=== PATIENT | male | born 1950 | race Caucasian/White ===

== ENCOUNTER 2019-09-07 09:00 | Emergency (ER) | payer OTHER ==
[2019-09-07] MEDS ORDERED: NA CHLORIDE 0.9% 1,000 ML ONE (10:33)
--- NOTE | 2019-09-07 10:58 | RAD REPORT ---
EXAM DESCRIPTION: USExtrem Venous W Compress Bil09/07/2019 10:49 am CLINICAL HISTORY: Bilateral leg swelling COMPARISON: none FINDINGS: The common femoral, superficial femoral, popliteal and posterior tibial veins bilaterally are compressible and demonstrate augmentation. Doppler demonstrates good flow. IMPRESSION: No evidence of deep venous thrombosis involving either lower extremity.
--- NOTE | 2019-09-07 11:18 | RAD REPORT ---
EXAM DESCRIPTION: CT - Chest For Pe Angio - 09/07/2019 10:53 am CLINICAL HISTORY: Chest pain COMPARISON: 2014 TECHNIQUE: Dynamically enhanced axial 3 mm thick images of the chest were obtained during administra tion of <100> mL Isovue 370 IV contrast. Coronal and oblique reconstruction images were generated and reviewed. Exam utilizes a protocol for optimal evaluation of pulmonary arterial tree. Maximum intensity projections 3D imaging was utilized All CT scans are performed using dose optimization technique as appropriate and may include automated exposure control or mA/KV adjustment according to patient size. FINDINGS: A pulmonary embolus is not seen. A thoracic aortic aneurysm is not noted. A pleural effusion is not seen. A pericardial effusion is not seen. 3 x 1 centimeter right upper lobe opacity. 1 centimeter noncalcified left lower lobe nodule Calcified lung granulomas. Mild to moderate paraseptal/centrilobular emphysema IMPRESSION: Negative for a pulmonary embolism. Development of a 1 centimeter left lower lobe nodule. Development of a 3 x 1 centimeter right upper lobe opacity. This probably represents a scar. A mass i s less likely. It is recommended that patient have a PET CT scan for further evaluation
--- NOTE | 2019-09-07 11:31 | EDPHYS ---
Physician Documentation [facility] Name: Rigoberto Murray Age: 69 yrs Sex: Male : 1950 Arrival Date: 09/07/2019 Time: 09:03 Bed 4 Private MD: Yovani Mcduffie V ED Physician Santosh Lopes HPI: 09/07 10:18 This 69 yrs old Male presents to ER via Ambulatory with complaints of Blood angel clot. 10:18 This 69 yrs old Male presents to ER via Ambulatory with complaints of Blood angel clot. 10:18 The patient has shortness of breath with light activity. Onset: The symptoms/episode angel began/occurred 2 week(s) ago. Duration: The symptoms are intermittent, with no pattern. The patient's shortness of breath has no apparent modifying factors. Associated signs and symptoms: The patient has no apparent associated signs or symptoms. Severity of symptoms: At their worst the symptoms were mild moderate in the emergency department the symptoms have improved mildly. The patient has not experienced similar symptoms in the past. Historical: - Allergies: 09:19 No Known Allergies; ss - Home Meds: 10:03 Diltiazem Oral [Active]; levothyroxine oral [Active]; pravastatin oral oral [Active]; ah Magnesium Oxide Oral [Active]; Vitamin B-12 Oral [Active]; Vitamin D3 oral oral [Active]; Symbicort inhalation inhalation [Active]; - PMHx: 09:19 Hypertension; High Cholesterol; Hypothyroidism; ss 09:20 COPD; bladder CA; ss - PSHx: 09:20 Gastric Bypass; Appendectomy; ss - Immunization history:: Adult Immunizations up to date. - Coronavirus screen:: The patient has NOT traveled to [place], [place], or [place] in the past 14 days. Proceed with normal triage process as indicated. - Social history:: Smoking status: Patient reports the use of cigarette tobacco products, smokes one pack cigarettes per day. - Family history:: not pertinent. - Ebola Screening: : Patient denies exposure to infectious person Patient denies travel to an Ebola-affected area in the 21 days before illness onset. ROS: 10:18 Constitutional: Negative for fever, chills, and weight loss, Eyes: Negative for injury, angel pain, redness, and discharge, ENT: Negative for injury, pain, and discharge, Neck: Negative for injury, pain, and swelling, Cardiovascular: Negative for chest pain, palpitations, and edema, Abdomen/GI: Negative for abdominal pain, nausea, vomiting, diarrhea, and constipation, Back: Negative for injury and pain, : Negative for injury, bleeding, discharge, and swelling, MS/Extremity: Negative for injury and deformity, Skin: Negative for injury, rash, and discoloration, Neuro: Negative for headache, weakness, numbness, tingling, and seizure, Psych: Negative for depression, anxiety, suicide ideation, homicidal ideation, and hallucinations, Allergy/Immunology: Negative for hives, rash, and allergies, Endocrine: Negative for neck swelling, polydipsia, polyuria, polyphagia, and marked weight changes, Hematologic/Lymphatic: Negative for swollen nodes, abnormal bleeding, and unusual bruising. 10:18 Respiratory: Positive for cough, shortness of breath. Exam: 10:18 Constitutional: This is a well developed, well nourished patient who is awake, alert, angel and in no acute distress. Head/Face: Normocephalic, atraumatic. Eyes: Pupils equal round and reactive to light, extra-ocular motions intact. Lids and lashes normal. Conjunctiva and sclera are non-icteric and not injected. Cornea within normal limits. Periorbital areas with no swelling, redness, or edema. ENT: Nares patent. No nasal discharge, no septal abnormalities noted. Tympanic membranes are normal and external auditory canals are clear. Oropharynx with no redness, swelling, or masses, exudates, or evidence of obstruction, uvula midline. Mucous membranes moist. Neck: Trachea midline, no thyromegaly or masses palpated, and no cervical lymphadenopathy. Supple, full range of motion without nuchal rigidity, or vertebral point tenderness. No Meningismus. Chest/axilla: Normal chest wall appearance and motion. Nontender with no deformity. No lesions are appreciated. Cardiovascular: Regular rate and rhythm with a normal S1 and S2. No gallops, murmurs, or rubs. Normal PMI, no JVD. No pulse deficits. Respiratory: Lungs have equal breath sounds bilaterally, clear to auscultation and percussion. No rales, rhonchi or wheezes noted. No increased work of breathing, no retractions or nasal flaring. Abdomen/GI: Soft, non-tender, with normal bowel sounds. No distension or tympany. No guarding or rebound. No evidence of tenderness throughout. Back: No spinal tenderness. No costovertebral tenderness. Full range of motion. Male : Normal genitalia with no discharge or lesions. Skin: Warm, dry with normal turgor. Normal color with no rashes, no lesions, and no evidence of cellulitis. MS/ Extremity: Pulses equal, no cyanosis. Neurovascular intact. Full, normal range of motion. Neuro: Awake and alert, GCS 15, oriented to person, place, time, and situation. Cranial nerves II-XII grossly intact. Motor strength 5/5 in all extremities. Sensory grossly intact. Cerebellar exam normal. Normal gait. Psych: Awake, alert, with orientation to person, place and time. Behavior, mood, and affect are within normal limits. 10:18 Musculoskeletal/extremity: DVT Exam: No signs of deep vein thrombosis. no pain, no swelling, no tenderness, negative Homans' sign noted on exam, no appreciated bluish discoloration, no erythema, no increased warmth. Vital Signs: 09:19 BP 123 / 84; Pulse 99; Resp 16; Temp 97.1(TE); Pulse Ox 99% on R/A; Weight 93.44 kg; ss Height 6 ft. 0 in. (182.88 cm); Pain 0/10; 09:55 BP 122 / 79; Pulse 75; Resp 12; Pulse Ox 99% ; sv 11:07 BP 131 / 82; Pulse 67; Resp 12; Pulse Ox 100% ; sv 11:44 BP 126 / 82; Pulse 66; Resp 16; Pulse Ox 99% ; sv 09:19 Body Mass Index 27.94 (93.44 kg, 182.88 cm) MDM: 09:35 Patient medically screened. [facility] 10:19 Data reviewed: vital signs, nurses notes, lab test result(s), EKG, radiologic studies, [facility] CT scan, doppler, plain films. 09/07 09:53 Order name: BNP [facility] 09/07 10:46 Order name: NT PRO-BNP; Complete Time: 11:21 EDPR 09/07 09:53 Order name: CT Chest For PE Angio [facility] 09/07 09:53 Order name: US Extremity Venous W Compression Antonio [facility] 09/07 11:09 Order name: US; Complete Time: 11:21 EDMS 02/11 11:24 Order name: CT [facility] 09/07 09:53 Order name: EKG - Nurse/Tech; Complete Time: 11:43 angel 09/07 09:53 Order name: EKG; Complete Time: 09:53 [facility] Administered Medications: 11:00 Drug: NS 0.9% 1000 ml Route: IV; Rate: 1 bolus; Site: right antecubital; sv 11:43 Follow up: Response: No adverse reaction; IV Status: Order to discontinue infusion; IV sv Intake: 800ml Disposition: 09/07/19 11:31 Discharged to Home. Impression: Chronic obstructive pulmonary disease, unspecified, Solitary pulmonary nodule, Tobacco abuse counseling, Tobacco use. - Condition is Stable. - Discharge Instructions: Chronic Bronchitis, Steps to Quit Smoking, Smoking Hazards, Chronic Obstructive Pulmonary Disease Exacerbation, Steps to Quit Smoking, [id number], Cough, Adult, [id number], Pulmonary Nodule, Pulmonary Nodule, [id number], Chronic Obstructive Pulmonary Disease Exacerbation, [id number]. - Prescriptions for Zithromax Z- Mitchel 250 mg Oral Tablet - take 1 tablet by ORAL route as directed for 5 days Day 1 - take two (2) tablets one time. Day 2, 3, 4 , 5 take one (1) tablet once daily.; 6 tablet. Medrol (Mitchel) 4 mg Oral Tablets, Dose Pack - take 1 tablet by ORAL route as directed - follow package instructions; 1 packet. - Medication Reconciliation Form, Thank You Letter, Antibiotic Education, Prescription Opioid Use form. - Follow up: Yovani Mcduffie MD; When: 2 - 3 days; Reason: Recheck today's complaints, Continuance of care, Re-evaluation by your physician. - Problem is new. - Symptoms have improved. Signatures: Dispatcher [employer] [facility] Monica Granados RN RN Santosh Wilks MD MD cha Smirch, Shelby, RN RN Mechelle Weeks RN RN Corrections: (The following items were deleted from the chart) 11:44 11:31 09/07/2019 11:31 Discharged to Home. Impression: Chronic obstructive pulmonary sv disease, unspecified; Solitary pulmonary nodule; Tobacco abuse counseling; Tobacco use. Condition is Stable. Forms are Medication Reconciliation Form, Thank You Letter, Antibiotic Education, Prescription Opioid Use. Follow up: Yovani Mcduffie; When: 2 - 3 days; Reason: Recheck today's complaints, Continuance of care, Re-evaluation by your physician. Problem is new. Symptoms have improved. angel
--- NOTE | 2019-09-07 11:31 | ER ---
Nurse's Notes [facility] Name: Rigoberto Murray Age: 69 yrs Sex: Male : 1950 Arrival Date: 09/07/2019 Time: 09:03 Bed 4 Private MD: Yovani Mcduffie V Diagnosis: Chronic obstructive pulmonary disease, unspecified;Solitary pulmonary nodule;Tobacco abuse counseling;Tobacco use Presentation: 09/07 09:16 Presenting complaint: Patient states: Intermittent shortness of breath x "a couple ss weeks". Sent by PCP to r/o PE. Transition of care: patient was not received from another setting of care. Onset of symptoms is unknown. Risk Assessment: Do you want to hurt yourself or someone else? Patient reports no desire to harm self or others. Initial Sepsis Screen: Does the patient meet any 2 criteria? HR > 90 bpm. Does the patient have a suspected source of infection? No. Patient's initial sepsis screen is negative. Care prior to arrival: None. 09:16 Method Of Arrival: Ambulatory ss 09:16 Acuity: SYLVIA 3 ss Historical: - Allergies: 09:19 No Known Allergies; ss - Home Meds: 10:03 Diltiazem Oral [Active]; levothyroxine oral [Active]; pravastatin oral oral [Active]; ah Magnesium Oxide Oral [Active]; Vitamin B-12 Oral [Active]; Vitamin D3 oral oral [Active]; Symbicort inhalation inhalation [Active]; - PMHx: 09:19 Hypertension; High Cholesterol; Hypothyroidism; ss 09:20 COPD; bladder CA; ss - PSHx: 09:20 Gastric Bypass; Appendectomy; ss - Immunization history:: Adult Immunizations up to date. - Coronavirus screen:: The patient has NOT traveled to [place], [place], or [place] in the past 14 days. Proceed with normal triage process as indicated. - Social history:: Smoking status: Patient reports the use of cigarette tobacco products, smokes one pack cigarettes per day. - Family history:: not pertinent. - Ebola Screening: : Patient denies exposure to infectious person Patient denies travel to an Ebola-affected area in the 21 days before illness onset. Screenin:18 Abuse screen: Denies threats or abuse. Denies injuries from another. Nutritional sv screening: No deficits noted. Tuberculosis screening: No symptoms or risk factors identified. Fall Risk None identified. Assessment: 09:52 General: Appears in no apparent distress. Behavior is calm, cooperative. Pain: Denies ah pain. Neuro: Level of Consciousness is awake, alert, obeys commands, Oriented to person, place, time, Coach Builder are equal bilaterally. Cardiovascular: Denies chest pain, Heart tones S1 S2 present Capillary refill < 3 seconds. Respiratory: Reports shortness of breath on exertion since off and on a couple of weeks Airway is patent Respiratory effort is even, unlabored, Respiratory pattern is regular, symmetrical, Breath sounds are clear. GI: No signs and/or symptoms were reported involving the gastrointestinal system. Abdomen is non-distended, Bowel sounds present X 4 quads. Abd is soft and non tender X 4 quads. : No signs and/or symptoms were reported regarding the genitourinary system. EENT:. Derm: No deficits noted. Skin is intact, is healthy with good turgor, Skin is dry. 11:44 Reassessment: Patient appears in no apparent distress at this time. No changes from previously documented assessment. Patient and/or family updated on plan of care and expected duration. Pain level reassessed. Patient is alert, oriented x 3, equal unlabored respirations, skin warm/dry/pink. Vital Signs: 09:19 BP 123 / 84; Pulse 99; Resp 16; Temp 97.1(TE); Pulse Ox 99% on R/A; Weight 93.44 kg; Height 6 ft. 0 in. (182.88 cm); Pain 0/10; 09:55 BP 122 / 79; Pulse 75; Resp 12; Pulse Ox 99% ; sv 11:07 BP 131 / 82; Pulse 67; Resp 12; Pulse Ox 100% ; sv 11:44 BP 126 / 82; Pulse 66; Resp 16; Pulse Ox 99% ; sv 09:19 Body Mass Index 27.94 (93.44 kg, 182.88 cm) ED Course: 09:03 Patient arrived in ED. mr 09:03 Yovani Mcduffie MD is Private Physician. mr 09:17 Triage completed. ss 09:19 Arm band placed on right wrist. ss 09:35 Santosh Lopes MD is Attending Physician. [facility] 09:52 Mechelle Weeks, RN is Primary Nurse. 09:54 Patient has correct armband on for positive identification. Placed in gown. Bed in low sv position. Call light in reach. Adult w/ patient. professional development director on. Pulse ox on. NIBP on. Door closed. Head of bed elevated. 10:03 Lab(s) recollected, by me, sent to lab. Inserted saline lock: 20 gauge in right mh5 antecubital area, using aseptic technique. Blood collected. 10:[address] via stretcher. 10:17 BNP Sent. sv 11:30 Yovani Mcduffie MD is Referral Physician. angel 11:43 US Extremity Venous W Compression Antonio Sent. sv 11:43 CT Chest For PE Angio Sent. sv 11:43 No provider procedures requiring assistance completed. IV discontinued, intact, sv bleeding controlled, No redness/swelling at site. Pressure dressing applied. Administered Medications: 11:00 Drug: NS 0.9% 1000 ml Route: IV; Rate: 1 bolus; Site: right antecubital; sv 11:43 Follow up: Response: No adverse reaction; IV Status: Order to discontinue infusion; IV sv Intake: 800ml Intake: 11:43 IV: 800ml; Total: 800ml. sv Outcome: 11:31 Discharge ordered by . angel 11:43 Discharged to home ambulatory, with family. sv 11:43 Condition: stable 11:43 Discharge instructions given to patient, family, Instructed on discharge instructions, follow up and referral plans. medication usage, Demonstrated understanding of instructions, follow-up care, medications, Prescriptions given X 2. 11:44 Patient left the ED. sv Signatures: Monica Granados RN RN sv Anderson, Corey, MD MD cha Rivera, Mary mr Smirch, Shelby, RN RN ss Martinez, Maria [facility] Mechelle Weeks, JENN BARAJAS
--- NOTE | 2019-09-07 12:28 | EKG ---
Test Date: 2019-09-07 Test Time: 10:03:40 Peanut Blancher: TRISTA MEASUREMENT RESULTS: Intervals: Rate: 72 IN: 168 QRSD: 74 QT: 374 QTc: 409 [place]: P: 39 IN: 168 QRS: 63 T: 69 INTERPRETIVE STATEMENTS: Normal sinus rhythm Normal ECG Compared to ECG 02/23/2007 14:50:12 No significant changes Electronically Signed On 09-07-19 12:27:10 EVENTS ADMINISTRATIVE ASSISTANT by Lonnie Weeks
[2019-09-09 04:58] VITALS: TEMP 97.1
[2019-09-09 05:02] VITALS: BP 126/82; O2SAT 99
== END 2019-09-07 11:44 | disposition home or self-care (01) ==
LOC: ER 09:00
DX: J44.9 Chronic obstructive pulmonary disease, unspecified (principal); R91.1 Solitary pulmonary nodule; Z72.0 Tobacco use; Z71.6 Tobacco abuse counseling; I10 Essential (primary) hypertension; E78.5 Hyperlipidemia, unspecified; E03.9 Hypothyroidism, unspecified; Z85.51 Personal history of malignant neoplasm of bladder
CPT/HCPCS: 93005; 36415; 83880; 71275; 93970; 96360; 99285; Q9967; J7030

== ENCOUNTER 2021-11-13 09:20 | Day surgery (SDC) | payer OTHER ==
[2021-11-08 14:12] LABS: Hematocrit 46.7 % (39.6-49.0); Lymphocytes % 11.9 % (15.3-44.8); MPV 7.3 fL (7.6-11.3); RBC Red Blood Cell Count 5.07 M/uL (4.33-5.43)
[2021-11-08 14:16] LABS: Protime INR 0.98
[2021-11-08 14:20] LABS: Urine Appearance CLEAR (Clear); Urine Bilirubin NEGATIVE (Negative); Urine Blood 2+ (Negative); Urine Color YELLOW (Yellow); Urine Glucose NEGATIVE (Negative); Urine Protein NEGATIVE (Negative); Urine Urobilinogen 0.2 mg/dL (0.2-1.0)
[2021-11-08 14:28] LABS: Urine Microscopic Reflex ORDER UMIC
[2021-11-08 14:32] LABS: Potassium 4.3 mmol/L (3.5-5.1)
[2021-11-08 14:47] LABS: Urine Bacteria <20 /HPF (NONE SEEN); Urine Urothelial Cells <5 /HPF (NONE SEEN)
[2021-11-13] MEDS ORDERED: GEMCITABINE HCL 26.3 ML IVPB ONE (09:45)
[2021-11-13] MEDS ORDERED: Ringers Lactate 1,000 ML IV ONE (09:55)
[2021-11-13] MEDS ORDERED: CEFAZOLIN/SWI 2gm 2 GM/20 ML SYR ONE (09:55)
[2021-11-13] MEDS ORDERED: propofoL 200 MG/20 ML VIAL IV ONE ×2 (12:34→13:39)
[2021-11-13] MEDS ORDERED: ROCURONIUM 50 MG/5 ML VIAL IV ONE (12:35)
[2021-11-13] MEDS ORDERED: LIDOCAINE 1% MPF 5 ML VIAL ONE ×2 (12:35→13:39)
[2021-11-13] MEDS ORDERED: FENTANYL CITR 100 MCG/2 ML ONE (12:35)
[2021-11-13] MEDS ORDERED: GLYCOPYRROLATE 0.2 MG/ML SYR ONE ×2 (13:39)
[2021-11-13] MEDS ORDERED: dexAMETHasone 10 MG/ML VIAL ONE (13:45)
[2021-11-13] MEDS ORDERED: KETOROLAC 30 MG/ML INJ ONE (13:45)
[2021-11-13] MEDS ORDERED: NEOSTIGMINE 1 MG/ML -5 ML ONE (13:45)
[2021-11-13] MEDS ORDERED: ONDANSETRON 4 MG/2 ML VIAL ONE (13:48)
[2021-11-13] MEDS ORDERED: CODEINE 30MG/APAP 300MG TAB PO PRN (14:31)
[2021-11-13] MEDS ORDERED: PHENAZOPYRIDINE 100MG TAB PO ONE ×2 (14:31→15:50)
[2021-11-13] MEDS ORDERED: CODEINE 30MG/APAP 300MG TAB ONE (15:50)
[2021-11-13 16:13] VITALS: BP 111/69; TEMP 97; O2SAT 98
--- NOTE | 2021-11-14 01:08 | OP ---
Surgeon: ARNIE HELLER Preoperative Diagnoses: 1.Bladder tumor. 2.History of urothelial carcinoma of the bladder from 2015. Postoperative Diagnosis: 1.Bladder tumor. 2.History of urothelial carcinoma of the bladder from 2015. Principal Procedures: 1.Cystoscopy with transurethral resection of a bladder tumor. 2.Instillation of gemcitabine intravesical 2 g and 50 cc normal saline. Findings: 1.5 cm right lateral wall posterior bladder tumor. Indication For Procedure: Mr. Murray is a 71-year-old gentleman who has a history of urothelial car cinoma of the bladder, diagnosed in [address] Samayoa. He underwent resection, but it is unclear if he had any adjuvant therapy. He then presented for evaluation and underwent cystoscopy which reve aled the presence of a recurrent tumor in the right lateral wall posteriorly. As a result, he presen ts today for definitive surgical resection and management. Procedure In Detail: The patient was consented in the preoperative holding area before being transfe rred to operative suite, where general anesthesia was induced. He was given 2 g of Ancef IV antimicr obial prophylaxis and pneumo boots were provided for DVT prophylaxis. He was placed in the lithotomy position, padded and secured to the table appropriately. His genitalia were prepped using Hibiclens and draped in standard fashion. The case was begun using urethral sounds to dilate the meatus and f boston navicularis to 30-Spanish. I then utilized a 26-Spanish resectoscope sheath and visual obturator to traverse the urethra and into the bladder with ease. The bladder was surveyed in its entirety and was somewhat capacious and somewhat floppy in appearance with moderate trabeculation throughout. Th e trigone and ureteral orifices were orthotopic in location. The tumor was noted to emanate from the right lateral wall posteriorly near the ureteral orifice. As a result, utilizing the thin loop and bipolar resection, with normal saline, the tumor was resected from its position within the right late ral wall, including sufficient tissue for muscular analysis. These chips were sent for pathologic an alysis. Ellik evacuation was performed to remove other chips and any residual were directly grasped from within the bladder and sent for analysis. A careful search for bleeding was then undertaken, wi th the bladder decompressed, and the base was carefully fulgurated. With no ongoing bleeding with th e bladder decompressed, I then surveyed the remainder of the bladder and the urethra on the way out. With no additional chips or bleeding noted, I then placed an 18-Spanish Vaca catheter into his bladd er with ease and decompressed the fluid and urine. 30 cc of sterile water was placed in the balloon. I then retrograde instilled 2 g of gemcitabine and 50 cc of normal saline and clamped the catheter with the fluid in place. This was connected to a leg bag and his genitalia was towelled off using gr een and blue towels. The patient was then taken out of the lithotomy position, awakened from general anesthesia, transferred to a stretcher, and then transferred to the recovery room in good condition. Complications: None. Discharge Disposition: He should follow up in the Urology Clinic in about 2 to 3 weeks to discuss th e results of pathology indicating next steps. He will be discharged home without the Vaca catheter as the tumor was solitary and isolated in position and there was no concern for perforation. KAILA/MODL Voice ID: [id number] Report ID: [id number]
== END 2021-11-13 16:00 | disposition home or self-care (01) ==
LOC: OR 09:20
PROVIDERS: ATTEND Urology
PROC: 3E0K705 Introduction of Other Antineoplastic into Genitourinary Tract, Via Natural or Artificial Opening (ICD-10-PCS; 2021-11-13)
PROC: 0TBB8ZX Excision of Bladder, Via Natural or Artificial Opening Endoscopic, Diagnostic (ICD-10-PCS; principal; 2021-11-13 10:45)
DX: C67.4 Malignant neoplasm of posterior wall of bladder (principal); I10 Essential (primary) hypertension; J44.9 Chronic obstructive pulmonary disease, unspecified; E03.9 Hypothyroidism, unspecified; E78.00 Pure hypercholesterolemia, unspecified; Z20.822 Contact with and (suspected) exposure to COVID-19
CPT/HCPCS: 87088; 85025; 87086; 80048; 36415; 85610; 88307; 52235; 51720; U0003; J2704 ×2; J3010; J1100; J2710; J0690; J9201; J7120; J2405; 81003; 81015; 88305

== ENCOUNTER 2022-08-06 09:25 | Day surgery (SDC) | payer OTHER ==
[2022-07-30 13:01] LABS: Hematocrit 47.8 % (39.6-49.0); Lymphocytes % 15.5 % (15.3-44.8); MCV 94.9 fL (80-100); MPV 7.5 fL (7.6-11.3); RBC Red Blood Cell Count 5.04 M/uL (4.33-5.43)
[2022-07-30 13:12] LABS: Potassium 4.5 mmol/L (3.5-5.1)
--- NOTE | 2022-07-30 13:12 | RAD REPORT ---
EXAM DESCRIPTION: RAD - Chest Pa And Lat (2 Views) - 07/30/2022 12:56 pm CLINICAL HISTORY: Pre op pending urolift and bladder biospy COMPARISON: Chest Pa And Lat (2 Views) dated 10/30/2021; Chest Pa And Lat (2 Views) dated 09/07/2019; C HEST PA AND LAT 2 VIEW dated 07/20/2014 FINDINGS: Lines: None. Lungs: No evidence of edema or pneumonia. Pleural: No significant pleural effusions or pneumothorax. Cardiac: The heart size is within normal limits. Mediastinum: Within normal limits. Bones: No acute fractures. Other: None IMPRESSION: No acute cardiopulmonary disease.
[2022-08-06] MEDS ORDERED: Ringers Lactate 1,000 ML IV ONE (09:48)
[2022-08-06] MEDS ORDERED: CEFAZOLIN SODIUM 2 GM/VIAL ONE (09:48)
[2022-08-06] MEDS ORDERED: LIDOCAINE 1% MPF 5 ML VIAL ONE (11:30)
[2022-08-06] MEDS ORDERED: propofoL 200 MG/20 ML VIAL IV ONE (11:30)
[2022-08-06] MEDS ORDERED: FENTANYL CITR 100 MCG/2 ML ONE (11:30)
[2022-08-06] MEDS ORDERED: NS 0.9% VIAL 10 ML ONE (11:30)
[2022-08-06] MEDS ORDERED: ONDANSETRON 4 MG/2 ML VIAL ONE (11:58)
[2022-08-06] MEDS ORDERED: KETOROLAC 30 MG/ML INJ ONE (11:58)
[2022-08-06] MEDS ORDERED: EPHEDRINE SULF 50 MG/ML VIAL ONE (12:19)
[2022-08-06 13:12] VITALS: O2SAT 95
[2022-08-06] MEDS ORDERED: PHENAZOPYRIDINE 100MG TAB PO ONE ×2 (13:15→13:46)
[2022-08-06] MEDS ORDERED: CODEINE 30MG/APAP 300MG TAB PO PRN (13:15)
[2022-08-06] MEDS ORDERED: CODEINE 30MG/APAP 300MG TAB ONE (13:46)
[2022-08-06 13:49] VITALS: BP 130/87; TEMP 97.7
[2022-08-06] MEDS ORDERED: LIDOCAINE JELLY 2% 5 ML SYRINGE TOP ONE (14:43)
--- NOTE | 2022-08-06 19:28 | OP ---
Surgeon: ARNIE HELLER Preoperative Diagnoses: 1.Benign prostatic hypertrophy with lower urinary tract obstruction and symptoms. 2.Incomplete emptying of the bladder. 3.History of urothelial carcinoma of the bladder. 4.Bladder lesion. Postoperative Diagnoses: 1.Benign prostatic hypertrophy with lower urinary tract obstruction and symptoms. 2.Incomplete emptying of the bladder. 3.History of urothelial carcinoma of the bladder. 4.Bladder lesion. Principal Procedures: 1.Cystoscopy with bladder biopsies and fulguration. 2.Prostatic urethral lift/UroLift with 5 implants placed. Indication For Procedure: Mr. Murray presented to the [facility]rology [facility] in followup evaluation of his prior treatment of his high-grade/intermediate-grade urothelial carcinoma of the bladder with inducti on course of gemcitabine intravesical therapy given. There was a residual fibrinous appearing lesion /scab emanating from the right posterior wall of his bladder, which I recommended biopsy and removal to ensure absence of residual carcinoma. Additionally, because he had significant/large volume incom plete emptying associated with some BPH and potentially a degree of underlying voiding dysfunction, gaby mejia discussed options for management to include the prostatic urethral lift and he agreed to the UroLif t. Procedure In Detail: The patient was consented in the preoperative holding area before being transfe rred to operative suite where general anesthesia was induced. He was given Ancef 2 g IV antimicrobia l prophylaxis and Pneumoboots were provided for DVT prophylaxis. He was placed in the lithotomy posi tion, padded and secured to the table appropriately and his genitalia were prepped with Hibiclens and draped in standard fashion. The case was begun using a 22-Surinamese rigid cystoscope to traverse the u rethra and into the bladder with ease. The bladder was decompressed off a significant volume of tc r yellow urine. It was then refilled with saline and found to be floppy and redundant in appearance. While improved, there was persistence of this fibrinous debris emanating from the prior biopsy site within the right posterior wall of the bladder, and additionally, in the dome, there was an erythema tous patch, which may have simply been from the cystoscope rubbing against that portion of the bladde r when collapsed. As a result, I utilized a cold cup biopsy forceps to biopsy both areas of the blad bryant, starting with the anterior dome of the bladder and then removing the fibrinous lesion and biopsy ing the base in the right posterior wall of the bladder. These were sent for pathologic analysis, an aby I fulgurated the base of these lesions until hemostatic with the bladder completely decompressed. This was done using sterile water. I then switched by removing the scope and using the 20-[place]amese Uro Lift sheath and visual obturator to traverse the urethra and into his bladder. I then switched the v isual photocopying machine operator for a UroLift delivery device, a UL2 delivery device and an implant. The first implan t site was targeted in the right lateral anterior wall of the prostate between the 10 and 11 o'clock position, 1.5 to 2 cm from the bladder neck. The first pull of the trigger was done to deploy the ne edle through the prostate, after about 10 degrees of compression was achieved in that location. An a dditional 10 degrees of compression was then accomplished to further deliver the needle all the way t hrough the substance of the prostate and then a second pull of the trigger to deliver the capsular ta b to the surface of the prostate, partially retracting the needle. A third pull of the trigger compl etely retracted the needle and tensioned the suture, and a fourth pull of the trigger applied the ure thral endpiece and cut the suture. This was done after advancing the scope back to the midline and f orward 2 to 3 mm towards the bladder until the white line of the monofilament was centered in the [place]. I then, because the majority of his intraluminally obstructing tissue was emanating from the right lateral wall, placed a second implant this time at the apex at the level of the verumontanu m between the 10 and 11 o'clock position. This was done on the right side as well. This did nicely open the channel; however, it revealed a degree of left lateral lobar hypertrophy. As a result, I pl aced a third implant at the bladder neck, contralateral to the implant placed on the right side, and a fourth implant was placed at the verumontanum on the left side. I then surveyed the channel using a visual obturator, and there was some residual anterior overhang at the level of the bladder neck th at had been created by the other implants being placed, and so I targeted a position between 12 and 1 o'clock on the left side between the bladder neck implant and the apical implant, but closer to the bladder neck implant, and placed an additional implant in that location nicely elevating the bladder neck and creating a continuous anterior channel. A total of 5 implants were used, and I left his ariana dder full before removing the scope and placing an 18-Surinamese catheter with ease. [address] was placed in the balloon, and the catheter was connected to a leg bag. He was then taken out of the lithotomy position, awakened from general anesthesia, transferred to a stretcher, and then trans ferred to the recovery room in good condition. Complications: None. Discharge Disposition: He should follow up in about 2 to 3 weeks to discuss the results of the patho logy of the biopsies and follow up his symptoms following the UroLift. A bladder scan PVR would also be recommended given his significant volume incomplete emptying that has been treated. [email or web address]/[email or web address] Voice ID: [id number] Report ID: [id number]
== END 2022-08-06 15:10 | disposition home or self-care (01) ==
LOC: OR 09:25
PROVIDERS: ATTEND Urology
PROC: 0TBB8ZX Excision of Bladder, Via Natural or Artificial Opening Endoscopic, Diagnostic (ICD-10-PCS; principal; 2022-08-06 10:30)
PROC: 0T7D8DZ Dilation of Urethra with Intraluminal Device, Via Natural or Artificial Opening Endoscopic (ICD-10-PCS; 2022-08-06 10:30)
DX: N40.1 Benign prostatic hyperplasia with lower urinary tract symptoms (principal); R33.9 Retention of urine, unspecified; Z85.51 Personal history of malignant neoplasm of bladder; N32.9 Bladder disorder, unspecified
CPT/HCPCS: 87088; 85025; 87086; 80048; 36415; 88305; 71046; 52204; 52441; 52442 ×4; J2704; J2001; J3010; A4216; J7120; J2405